=== PATIENT | female | born 1990 | race Native Hawaiian/Other Pacific Islander ===

== ENCOUNTER 2019-06-14 08:39 | Outpatient (CLI) | payer BC | END 2019-06-14 19:34 | disposition home or self-care (01) | LOC: US 08:39 | DX: I70.213 Atherosclerosis of native arteries of extremities with intermittent claudication, bilateral legs (principal) ==

== ENCOUNTER 2020-09-13 14:27 | Outpatient (CLI) | payer BC | END 2020-09-13 20:11 | disposition home or self-care (01) | LOC: RESP 14:27 | PROVIDERS: ATTEND Physician Assistant | DX: R00.2 Palpitations (principal); F41.9 Anxiety disorder, unspecified | CPT/HCPCS: 93225 ==